=== PATIENT | male | born 1950 | race Caucasian/White ===

== ENCOUNTER → 2024-07-20 | Outpatient (REF) | payer OTHER, SELFPAY ==
[2024-07-20 08:17] LABS: Anion Gap 9 (5-15); BUN 24 mg/dL (7-18); BUN/Creat Ratio 21.6 RATIO (10-20); Calcium,Total 8.8 mg/dL (8.5-10.1); Chloride 107 mmol/L (98-107); Creatinine, Serum 1.11 mg/dL (0.70-1.30); EST Glomerular Filtration Rate 69 mL/min (>60); Est Glom Filt Rate - Afr Amer 84 mL/min (>60); Glucose 207 mg/dL (74-106); Magnesium 1.3 mg/dL (1.6-2.6); Potassium 4.3 mmol/L (3.5-5.1); Sodium Level 137 mmol/L (136-145)
== END ==
LOC: OLS.ACW400 05:00
PROVIDERS: Visit Provider Family Medicine
DX: G30.1 Alzheimer's disease with late onset (principal); S06.0X1D Concussion with loss of consciousness of 30 minutes or less, subsequent encounter; R13.12 Dysphagia, oropharyngeal phase; R41.841 Cognitive communication deficit; R27.9 Unspecified lack of coordination
CPT/HCPCS: 36415; 80048; 83735